=== PATIENT | male | born 1965 | race Hispanic/Latino ===

== ENCOUNTER 2017-09-28 15:00 | Emergency (ER) | payer SELFPAY ==
[2017-09-28] MEDS ORDERED: DEXAMETHASONE SOD PHOSPHATE 10MG/ML 1ML VIAL ONE (15:21)
[2017-09-28] MEDS ORDERED: DIPHENHYDRAMINE HCL 25 MG CAPSULE ONE (15:21)
== END 2017-09-28 15:42 | disposition home or self-care (01) ==
LOC: EDH 15:00
DX: T63.441A Toxic effect of venom of bees, accidental (unintentional), initial encounter (principal); Y92.89 Other specified places as the place of occurrence of the external cause
CPT/HCPCS: 96372; 99283; J1100; Q0163

== ENCOUNTER 2018-08-14 12:25 | Emergency (ER) | payer SELFPAY ==
[2018-08-14] MEDS ORDERED: SULFAMETHOX-TMP DS 800/160 TAB ONE (12:52)
[2018-08-14 13:03] LABS: EOSINOPHILS % (AUTO) 13.6 % (0.0-8.0); HEMATOCRIT 46.2 % (42-54); LYMPHOCYTES % (AUTO) 16.3 % (21.0-51.0); MEAN CORPUSCULAR HEMOGLOBIN 31.5 pg (27.0-33.0); MEAN CORPUSCULAR HGB CONC 34.4 g/dL (32.0-36.0); MEAN CORPUSCULAR VOLUME 91.6 fL (79-99); MONOCYTES % (AUTO) 6.1 % (3.0-13.0); NUCLEATED RED BLOOD CELLS 0.1 % (0.0-0.19); PLATELET COUNT (AUTO) 125 K/uL (130-400); RED BLOOD CELL COUNT(AUTO) 5.05 MIL/uL (4.50-6.20); RED CELL DISTRIBUTION WIDTH 12.9 % (11.0-15.5); WHITE BLOOD COUNT (AUTO) 6.6 K/uL (4.8-10.8)
[2018-08-14 13:28] LABS: CREATININE 1.1 mg/dL (0.5-1.5)
[2018-08-14 13:30] LABS: ALBUMIN 3.6 g/dL (3.5-5.0); BILIRUBIN,TOTAL 0.5 mg/dL (0.2-1.0); TOTAL PROTEIN, SERUM 7.5 g/dL (6.0-8.3)
== END 2018-08-14 13:57 | disposition home or self-care (01) ==
LOC: EDH 12:25
DX: L03.031 Cellulitis of right toe (principal)
CPT/HCPCS: 36415; 73630; 80053; 85025

== ENCOUNTER 2018-08-14 14:56 | Emergency (ER) | payer SELFPAY ==
[2018-08-14] MEDS ORDERED: DiphenhydrAMINE HCL 50 MG/ML VIAL ONE (15:10)
[2018-08-14] MEDS ORDERED: FAMOTIDINE/PF 20 MG/2 ML VIAL IV ONE (15:11)
[2018-08-14] MEDS ORDERED: DEXAMETHASONE SOD PHOSPHATE 10MG/ML 1ML VIAL ONE (15:43)
== END 2018-08-14 17:32 | disposition home or self-care (01) ==
LOC: EDH 14:56
DX: T78.49XA Other allergy, initial encounter (principal); L03.116 Cellulitis of left lower limb; X58.XXXA Exposure to other specified factors, initial encounter
CPT/HCPCS: 96374; 96375; 99283; J1100; J1200; J3490

== ENCOUNTER 2022-01-11 07:41 | Emergency (ER) | payer OTHER ==
[~2022-01-11] VITALS: Ht 170.2 cm; Wt 93.0 kg
[2022-01-11 07:42] VITALS: BP 182/94
[2022-01-11 08:14] LABS: MEAN CORPUSCULAR HGB CONC 35.5 g/dL (32.0-36.0); MEAN CORPUSCULAR VOLUME 90.1 fL (79-99); RED BLOOD CELL COUNT(AUTO) 4.66 MIL/uL (4.50-6.20); RED CELL DISTRIBUTION WIDTH 12.6 % (11.0-15.5); WHITE BLOOD COUNT (AUTO) 4.8 K/uL (4.8-10.8)
[2022-01-11 08:24] LABS: ALBUMIN 3.8 g/dL (3.5-5.0); POTASSIUM 3.7 mmol/L (3.5-5.1); TOTAL PROTEIN, SERUM 7.1 g/dL (6.0-8.3)
[2022-01-11 08:50] LABS: INR 0.93 (0.85-1.15)
[2022-01-11] MEDS ORDERED: HYDROCORTISONE 25 MG SUPPOSITORY PR ONE (08:53)
[2022-01-11] MEDS ORDERED: HYDR25SU38 RC (08:54)
[2022-01-11] MEDS ORDERED: HYDROCORTISONE 25 MG SUPPOSITORY PR SCH (09:00)
== END 2022-01-11 09:00 | disposition home or self-care (01) ==
LOC: EDH 07:41
DX: K64.8 Other hemorrhoids (principal)
CPT/HCPCS: 36415; 80053; 85027; 85610

== ENCOUNTER 2022-07-08 00:51 | Emergency (ER) | payer OTHER ==
[~2022-07-08] VITALS: Ht 177.8 cm; Wt 95.3 kg
[~2022-07-08 00:51] MED LIST: HYDR25SU38 RC
[2022-07-08 01:21] LABS: BASOPHILS % (AUTO) 0.4 % (0.0-5.0); LYMPHOCYTES % (AUTO) 39.2 % (21.0-51.0); MEAN CORPUSCULAR HEMOGLOBIN 31.8 pg (27.0-33.0); MEAN CORPUSCULAR HGB CONC 35.6 g/dL (32.0-36.0); MEAN CORPUSCULAR VOLUME 89.3 fL (79-99); MONOCYTES % (AUTO) 5.1 % (3.0-13.0); NEUTROPHILS % (AUTO) 51.2 % (40.0-77.0); PLATELET COUNT (AUTO) 139 K/uL (130-400); RED BLOOD CELL COUNT(AUTO) 4.59 MIL/uL (4.50-6.20); RED CELL DISTRIBUTION WIDTH 12.8 % (11.0-15.5); WHITE BLOOD COUNT (AUTO) 7.3 K/uL (4.8-10.8)
[2022-07-08 01:30] LABS: CREATININE 1.1 mg/dL (0.5-1.5); POTASSIUM 3.6 mmol/L (3.5-5.1)
[2022-07-08] MEDS ORDERED: ACETAMINOPHEN 500 MG TABLET PO ONE (01:30)
[2022-07-08 01:32] LABS: INR 0.93 (0.85-1.15); PROTHROMBIN TIME 9.8 SEC (9.6-11.6)
[2022-07-08 01:33] LABS: PARTIAL THROMBOPLASTIN TIME 23.2 SEC (26.3-35.5)
[2022-07-08 01:34] LABS: ALBUMIN 3.8 g/dL (3.5-5.0); TOTAL PROTEIN, SERUM 7.2 g/dL (6.0-8.3)
[2022-07-08 03:35] VITALS: BP 112/74
== END 2022-07-08 03:41 | disposition home or self-care (01) ==
LOC: EDH 00:51
DX: S00.83XA Contusion of other part of head, initial encounter (principal); S00.432A Contusion of left ear, initial encounter; F10.129 Alcohol abuse with intoxication, unspecified; W18.39XA Other fall on same level, initial encounter; Y93.89 Activity, other specified; Y92.89 Other specified places as the place of occurrence of the external cause; Y99.8 Other external cause status
CPT/HCPCS: 36415; 70450; 80053; 85025; 85610; 85730

== ENCOUNTER 2022-09-28 20:46 | Emergency (ER) | payer BC, OTHER ==
[~2022-09-28] VITALS: Ht 175.3 cm; Wt 86.2 kg
[2022-09-28] MEDS ORDERED: ONDANSETRON 4MG INJ ONE (21:03)
[2022-09-28 21:14] LABS: APPEARANCE,URINE CLEAR (CLEAR); BILIRUBIN,URINE NEGATIVE (NEGATIVE); COLOR,URINE LIGHT-YELLOW (YELLOW); GLUCOSE, URINE (UA) NEGATIVE (NEGATIVE); KETONES,URINE NEGATIVE (NEGATIVE); LEUKOCYTE ESTERASE ,URINE NEGATIVE Leu/uL (NEGATIVE); NITRATE,URINE NEGATIVE (NEGATIVE); OCCULT BLOOD,URINE NEGATIVE (NEGATIVE); PROTEIN,URINE NEGATIVE (NEGATIVE); UROBILINOGEN,URINE 0.2 mg/dL (0.2-1.0)
[2022-09-28 21:16] LABS: MUCUS,URINE RARE LPF (None Seen); RBC,URINE 0-1 /HPF (0-1); SQUAMOUS EPITHELIAL CELL,UR RARE /HPF (0-2); WBC,URINE 0-1 /HPF (0-1)
[2022-09-28 21:25] LABS: BASOPHILS % (AUTO) 0.3 % (0.0-5.0); EOSINOPHILS % (AUTO) 2.9 % (0.0-8.0); HEMATOCRIT 41.7 % (42-54); LYMPHOCYTES % (AUTO) 15.8 % (21.0-51.0); MEAN CORPUSCULAR HEMOGLOBIN 32.7 pg (27.0-33.0); MEAN CORPUSCULAR HGB CONC 34.8 g/dL (32.0-36.0); MEAN CORPUSCULAR VOLUME 93.9 fL (79-99); MONOCYTES % (AUTO) 6.5 % (3.0-13.0); NEUTROPHILS % (AUTO) 73.8 % (40.0-77.0); PLATELET COUNT (AUTO) 142 K/uL (130-400); RED BLOOD CELL COUNT(AUTO) 4.44 MIL/uL (4.50-6.20); RED CELL DISTRIBUTION WIDTH 12.8 % (11.0-15.5); WHITE BLOOD COUNT (AUTO) 9.4 K/uL (4.8-10.8)
[2022-09-28] MEDS ORDERED: 0.9%NACL 1000ML 1,000 ML IV ONE (21:30)
[2022-09-28] MEDS ORDERED: ONDANSETRON 4MG INJ IVP ONE (21:30)
[2022-09-28 21:35] LABS: CREATININE 1.8 mg/dL (0.5-1.5); POTASSIUM 3.7 mmol/L (3.5-5.1)
[2022-09-28 21:44] LABS: ALBUMIN 4.1 g/dL (3.5-5.0); TOTAL PROTEIN, SERUM 7.1 g/dL (6.0-8.3)
[2022-09-28] MEDS ORDERED: MORPHINE 4 MG SYG ONE (21:50)
[2022-09-28] MEDS ORDERED: MORPHINE 4 MG SYG IVP ONE (22:00)
[2022-09-29] MEDS ORDERED: DICY20TA2 PO (00:56)
[2022-09-29 00:59] VITALS: BP 121/76
[2022-09-29] MEDS ORDERED: DICYCLOMINE 20MG (10MG/ML) AMP IM ONE (01:00)
== END 2022-09-29 01:15 | disposition home or self-care (01) ==
LOC: EDH 20:46
DX: K42.9 Umbilical hernia without obstruction or gangrene (principal); R10.9 Unspecified abdominal pain; N28.9 Disorder of kidney and ureter, unspecified
CPT/HCPCS: 99284; 74176; 96374; 71045; 96375; 84484; 80053; 83690; 85025; 81001; 36415; 93005; 96372; J2405; J2270; J0500

== ENCOUNTER 2023-08-29 18:24 | Emergency (ER) | payer BC ==
[~2023-08-29] VITALS: Ht 172.7 cm; Wt 79.4 kg
[~2023-08-29 18:24] MED LIST changes: +DICY20TA2 PO
[2023-08-29 19:13] LABS: APPEARANCE,URINE CLEAR (CLEAR); BILIRUBIN,URINE NEGATIVE (NEGATIVE); COLOR,URINE LIGHT-YELLOW (YELLOW); GLUCOSE, URINE (UA) NEGATIVE (NEGATIVE); KETONES,URINE NEGATIVE (NEGATIVE); LEUKOCYTE ESTERASE ,URINE NEGATIVE Leu/uL (NEGATIVE); NITRATE,URINE NEGATIVE (NEGATIVE); OCCULT BLOOD,URINE NEGATIVE (NEGATIVE); PH,URINE 5.5 (5.0-8.0); PROTEIN,URINE NEGATIVE (NEGATIVE); UROBILINOGEN,URINE 0.2 mg/dL (0.2-1.0)
[2023-08-29 19:14] LABS: ADD UA MICROSCOPIC NO
[2023-08-29] MEDS: 0.9%NACL 1000ML 1,000 ML IV ONE (19:15)
[2023-08-29] MEDS: KETOROLAC 30MG VIAL (30MG/ML) IVP ONE (19:15)
[2023-08-29 19:20] LABS: BASOPHILS # (AUTO) 0.07 K/uL (0.00-0.20); BASOPHILS % (AUTO) 0.8 % (0.0-5.0); EOSINOPHILS # (AUTO) 1.91 K/uL (0.00-0.70); EOSINOPHILS % (AUTO) 22.1 % (0.0-8.0); HEMATOCRIT 40.8 % (42-54); IMMATURE GRANULOCYTE ABSOLUTE 0.03 K/uL (0-1); LYMPHOCYTES # (AUTO) 1.6 K/uL (1.0-4.8); LYMPHOCYTES % (AUTO) 18.1 % (21.0-51.0); MEAN CORPUSCULAR HEMOGLOBIN 31.7 pg (27.0-33.0); MEAN CORPUSCULAR HGB CONC 35.8 g/dL (32.0-36.0); MEAN CORPUSCULAR VOLUME 88.7 fL (79-99); MONOCYTES # (AUTO) 0.4 K/uL (0.1-1.0); MONOCYTES % (AUTO) 5.1 % (3.0-13.0); NEUTROPHILS # (AUTO) 4.6 K/uL (1.8-7.7); NEUTROPHILS % (AUTO) 53.6 % (40.0-77.0); PLATELET COUNT (AUTO) 142 K/uL (130-400); RED CELL DISTRIBUTION WIDTH 12.3 % (11.0-15.5); WHITE BLOOD COUNT (AUTO) 8.6 K/uL (4.8-10.8)
[2023-08-29 19:43] LABS: ALBUMIN 3.8 g/dL (3.5-5.0); BILIRUBIN,TOTAL 0.5 mg/dL (0.2-1.0); TOTAL PROTEIN, SERUM 7.1 g/dL (6.0-8.3)
[2023-08-29 19:57] LABS: WBC MORPHOLOGY CONSISTENT W/DIFF
[2023-08-29] MEDS ORDERED: OMEP40CA21 PO (20:02)
[2023-08-29 20:05] VITALS: BP 142/70; PULSE 82; RESP 18; O2SAT 97
[2023-08-29] MEDS ORDERED: FAMOTIDINE 20MG VIAL IV SCH (21:00)
== END 2023-08-29 20:19 | disposition home or self-care (01) ==
LOC: EDH 18:24
DX: K29.00 Acute gastritis without bleeding (principal); F10.10 Alcohol abuse, uncomplicated; Z79.899 Other long term (current) drug therapy
CPT/HCPCS: 99284; 96374; 80053; 83690; 85025; 81003; 36415; J7030; J1885